=== PATIENT | female | born 1995 | race Caucasian/White ===

== ENCOUNTER → 2024-02-07 16:28 | Outpatient (REF) | payer BC, SELFPAY | LOC: PNTC 16:28 | PROVIDERS: ATTENDING PHYSICIAN Obstetrics & Gynecology | DX: O28.3 Abnormal ultrasonic finding on antenatal screening of mother (principal); O98.519 Other viral diseases complicating pregnancy, unspecified trimester; U07.1 COVID-19; O43.219 Placenta accreta, unspecified trimester; O34.219 Maternal care for unspecified type scar from previous cesarean delivery | CPT/HCPCS: 76816; 93976 ==

== ENCOUNTER → 2024-03-06 13:28 | Outpatient (REF) | payer BC, SELFPAY | LOC: PNTC 13:28 | PROVIDERS: ATTENDING PHYSICIAN Obstetrics & Gynecology | DX: O43.219 Placenta accreta, unspecified trimester (principal) | CPT/HCPCS: 76816; 93976 ==

== ENCOUNTER 2024-04-14 17:43 | Inpatient (IN) | payer BC, SELFPAY ==
[2024-04-14 18:00] VITALS: BP 130/80; BMI 29.8
[2024-04-14] MEDS: LR 1000 IV ×2 (18:17→19:03)
[2024-04-14 18:24] LABS: Hematocrit 33.3 % (37.0-47.0); Hemoglobin 11.9 g/dL (12.0-16.0); Mean Corp Hgb Conc. 35.7 g/dL (33.0-37.0); Mean Corpuscular Hgb 29.2 pg (27.0-31.0); Mean Corpuscular Volume 81.6 fL (81.0-99.0); Mean Platelet Volume 11.5 fL (7.4-10.4); Platelet Count 175 10^3/uL (130-400); Red Blood Cell Count 4.08 10^6/uL (4.20-5.40); White Blood Cell Count 11.8 10^3/uL (4.8-10.8)
[2024-04-14] MEDS: TYLENOL 1000 MG PO (18:34)
[2024-04-14] MEDS: BICITRA 30 ML PO (18:34)
[2024-04-14] MEDS: ANCEF 10 IV (18:34)
--- NOTE | 2024-04-14 20:14 | W.IMMPOSTOP ---
Surgical Immed Post Op Note
-
Primary Surgeon: Joana Velez DO
Assisting Surgeon: Waleska Yin, surgical services tech
Pre-op Diagnosis: IUP at 38+3wks, labor, prior LTCS x1, cat II FHT, SSRI exposure
Post-op Diagnosis: same as above
Procedure Performed: ERLTCS
Anesthesia Type: Spinal
Specimen / Cultures: none
Estimated Blood Loss: 500ml
Complications: none
Operative Findings: cephalic male infant, Apgars 8/8. Clear amniotic fluid. Loose nuchal cord x1. Normal appearing uterus, b/l tubes and ovaries. Minimal intraperitoneal scarring from previous surgery.
Rich Velez DO
dictation # [id number]
[2024-04-15] MEDS: ROXICODONE 5 MG PO (00:05)
[2024-04-15] MEDS: TORADOL 15 MG IV ×4 (02:12→19:48)
[2024-04-15 05:19] LABS: Hematocrit 30.9 % (37.0-47.0); Hemoglobin 11.1 g/dL (12.0-16.0); Mean Corp Hgb Conc. 35.9 g/dL (33.0-37.0); Mean Corpuscular Hgb 29.4 pg (27.0-31.0); Mean Platelet Volume 11.5 fL (7.4-10.4); Platelet Count 176 10^3/uL (130-400); Red Blood Cell Count 3.77 10^6/uL (4.20-5.40); White Blood Cell Count 17.4 10^3/uL (4.8-10.8)
[2024-04-15] MEDS: LEXAPRO 10 MG PO (07:50)
[2024-04-15] MEDS: MYLICON 80 MG PO ×3 (07:50→19:48)
[2024-04-15] MEDS: SENOKOT-S 1 TABLET PO (07:50)
--- NOTE | 2024-04-15 09:01 | W.PN.ANS.POP ---
Anesthesia Post Operative
- Anesthesia Post Op Note
Vital Signs Stable-See Nursing Note: Yes
Airway Patent: Yes
Adequate Pain Control: Yes
Change in Mental Status: No
Current Postoperative Nausea & Vomiting: No
Anesthesia Complications: No
General Anesthetic Recall: No
Unplanned Admission: No
Post Op Hydration Adequate: Yes
[2024-04-16] MEDS: MOTRIN 600 MG PO ×4 (02:33→22:03)
[2024-04-16] MEDS: LEXAPRO 10 MG PO (08:17)
[2024-04-16] MEDS: MYLICON 80 MG PO ×3 (08:17→19:47)
[2024-04-16] MEDS: SENOKOT-S 1 TABLET PO (08:17)
[2024-04-16 16:24] LABS: Syphilis/T. pallidum Ab Reflex Negative (Negative)
[2024-04-16] MEDS: ROXICODONE 5 MG PO (23:57)
[2024-04-17] MEDS: MOTRIN 600 MG PO (08:44)
[2024-04-17] MEDS: LEXAPRO 10 MG PO (08:44)
[2024-04-17] MEDS: SENOKOT-S 1 TABLET PO (08:44)
--- NOTE | 2024-04-17 09:38 | W.DS.TRANS ---
DC Summary - Pt Escort
-
Discharge Instructions:
Discharge Diagnosis/Procedures term , delivered; s/p ERLTCS
Instructions:
Stand-Alone Forms: LDRP Delivery
Changes to Home Medications: No
Discharge Medications:
DC Medications w/original date entered in [employer]
escitalopram oxalate 10 mg tablet 10 mg PO DAILY Depression 04/26/22
acetaminophen 325 mg tablet 650 mg (2 x 325 mg) PO Q4HPRN PRN mild pain #0 tabs 04/17/24
ibuprofen 600 mg tablet 600 mg PO Q6HPRN PRN cramps #60 tabs 04/17/24
oxycodone 5 mg tablet 5 mg PO Q4HPRN PRN severe pain #5 tabs 04/17/24
sennosides 8.6 mg-docusate sodium 50 mg tablet (Stool Softener-Stimulant Laxative) 1 tab PO DAILYPRN PRN constipation #0 tabs 04/17/24
Home Medication Changes
Pending Results: No
Total time spent discharging patient (in min): 20
[2024-04-17] MEDS: ROXICODONE 5 MG PO (10:40)
== END 2024-04-17 15:30 | disposition home or self-care (01) | DRG 788 ==
LOC: LDRP 17:43
PROVIDERS: ADMITTING PHYSICIAN Obstetrics & Gynecology
PROC: 10D00Z1 Extraction of Products of Conception, Low, Open Approach (ICD-10-PCS; 2024-04-14)
DX: O34.211 Maternal care for low transverse scar from previous cesarean delivery (principal); O99.344 Other mental disorders complicating childbirth; F41.9 Anxiety disorder, unspecified; O69.81X0 Labor and delivery complicated by cord around neck, without compression, not applicable or unspecified; O76 Abnormality in fetal heart rate and rhythm complicating labor and delivery; Z37.0 Single live birth; Z3A.38 38 weeks gestation of pregnancy
CPT/HCPCS: 85027; 86780; 86850; 86900; 86901

== ENCOUNTER → 2025-09-05 13:08 | Outpatient (REF) | payer BC, SELFPAY | LOC: MRI 3T 13:08 | PROVIDERS: ATTENDING PHYSICIAN Family Medicine | DX: D50.9 Iron deficiency anemia, unspecified (principal); R42 Dizziness and giddiness | CPT/HCPCS: 70553; A9575 ==